=== PATIENT | female | born 1955 | race Caucasian/White ===

== ENCOUNTER → 2017-12-02 10:25 | Outpatient (CLI) | payer OTHER, SELFPAY ==
[2017-12-02 10:43] LABS: Add Manual Diff / Slide Review NO; Basophils Percent Auto 0.8 % (0-2); Eosinophils Percent Auto 0.6 % (2-4); Hematocrit 35.3 % (36-46); Hemoglobin 12.2 g/dL (12.0-16.0); Mean Corpuscular HGB Conc 34.6 % (30-36); Mean Corpuscular Hemoglobin 31.4 PG (26-34); Mean Corpuscular Volume 90.8 fL (80-100); Neutrophils Absolute Auto 2900 /uL (3000-5900); Neutrophils Percent Auto 44.6 % (50-75); Platelet Count 346 X10^3/uL (150-400); Red Blood Cell Count 3.89 X10^6/uL (4.0-5.2); Red Cell Distribution Width 13.9 % (11.6-14.8); White Blood Cell Count 6.6 X10^3/uL (4.5-11.0)
[2017-12-02 11:07] LABS: Alanine Aminotransferase 25 IU/L (9-52); Albumin 4.4 g/dL (3.5-5.0); Albumin Globulin Ratio 1.5 (1.0-2.8); Alkaline Phosphatase 72 U/L (38-126); Aspartate Aminotransferase 35 IU/L (14-36); BUN Creatinine Ratio 20.9 (6-22); Bilirubin Total 0.5 mg/dL (0.2-1.3); Blood Urea Nitrogen 23 mg/dL (7-17); Calcium 10.1 mg/dL (8.4-10.2); Carbon Dioxide 27 mmol/L (22-32); Chloride 101 mmol/L (98-107); Globulin 2.9 g/dL (1.7-4.1); Glucose 98 mg/dL (80-110); HEMOLYSIS < 15 (0-50); Lipase 69 U/L (23-300); Potassium 4.3 mmol/L (3.4-5.1); Sodium 138 mmol/L (137-145); Total Protein 7.3 g/dL (6.3-8.2)
== END ==
PROVIDERS: Visit Provider Nurse Practitioner Family
DX: Z00.00 Encounter for general adult medical examination without abnormal findings (principal)
CPT/HCPCS: 36415; 80053; 83690; 85025

== ENCOUNTER 2018-10-16 18:45 | Emergency (ER) | payer OTHER, SELFPAY ==
[2018-10-16 19:02] VITALS: BP 205/80; PULSE 92; RESP 16; TEMP 37.1; O2SAT 100; BMI 19.6
--- NOTE | 2018-10-16 19:33 | DI.RAD.S_ITS ---
PROCEDURE: XR CHEST 2V INDICATIONS: coughing up blood TECHNIQUE: 2 views of the chest were acquired. COMPARISON: None. FINDINGS: Surgical changes and devices: Surgical clips in the epigastric region. Lungs and pleura: Increased interstitial markings. Prominent lung volumes. No focal consolidation. No pleural effusions or pneumothorax. Mediastinum: Mediastinal contours are normal. Mild thickening in the right suprahilar region. Heart size is normal. Bones and chest wall: No suspicious bony abnormalities. Soft tissues appear unremarkable. IMPRESSION: No acute air space opacity. Emphysematous change. Dictated by: Sam Parikh M.D. on 10/16/2018 at 20:02 Approved by: Sam Parikh M.D. on 10/16/2018 at 20:04
--- NOTE | 2018-10-16 20:10 | DI.CT.S_ITS ---
PROCEDURE: CT ANGIO CHEST PE PROTOCOL INDICATIONS: hemoptysis TECHNIQUE: After the administration of intravenous contrast, 2 mm thick sections acquired from the pulmonary apices to the posterior costophrenic angles. 3-dimensional maximum intensity projection (MIP) coronal and sagittal reformats were then acquired through the thorax. For radiation dose reduction, the following was used: automated exposure control, adjustment of mA and/or kV according to patient size. COMPARISON: CXR earlier today. FINDINGS: Image quality: Excellent. Pulmonary arteries: No filling defect to suggest pulmonary embolism. The pulmonary arteries are prominent in size. The right main pulmonary artery measures approximately 2.9 cm, and the left measures 2.5 cm. Aneurysmal dilatation of the ascending aorta measuring 3.3 cm. Moderate air globular calcification. There is left ventricular hypertrophy. Mild mitral annular calcification. Coronary artery calcifications. Severe stenosis in the left subclavian artery due to noncalcified atherosclerotic plaque, (4/36). Medialized ICAs, variant. Scattered calcified atherosclerotic plaque in the mesenteric and renal arteries. Lungs and pleura: No acute airspace opacity. Mild progress as do the lung bases is most compatible of atelectasis. There is mild emphysematous change. Distal airway mucous plugging or secretions in the left lower lobe, (4/94). No active extravasation. No pleural effusions or pneumothorax. Mediastinum: Heart size is normal, without pericardial effusion. Calcified upper mediastinal lymph nodes. No enlarged mediastinal or hilar adenopathy. Esophagus is normal in caliber, without hiatal hernia. Bones and chest wall: No suspicious bony lesions. Ribs and thoracic spine appear intact throughout. Thyroid gland is unremarkable. No axillary or supraclavicular adenopathy. Abdomen: Asymmetric opacification of the left kidney superior pole. There is cortical thinning. No adrenal nodule. IMPRESSION: 1. No pulmonary embolism. Pulmonary arteries are prominent in size which could be due to pulmonary arterial hypertension. 2. Secretions or mucous plugging in the left lower lobe. 3. Calcified mediastinal lymph nodes consistent with prior granulomatous process. 4. Extensive calcified and noncalcified atherosclerotic plaque. Severe stenosis in the left subclavian artery. Dictated by: Sam Parikh M.D. on 10/16/2018 at 21:19 Approved by: Sam Parikh M.D. on 10/16/2018 at 21:33
--- NOTE | 2018-10-16 20:26 | ED.URI ---
HPI - URI/Sore Throat General Chief Complaint: Upper Respiratory Symptoms Stated Complaint: coughing up blood Time Seen by Provider: 10/16/18 19:48 Source: patient Mode of arrival: ambulatory Limitations: no limitations History of Present Illness HPI Narrative: Patient is a 63-year-old female who has a history of hemoptysis presents with hemoptysis. She says she has had at least 6 episodes of coughing up blood clots. She states the initial 1 was quite large however they have decreased in size and now only seem to be about a quarter. At the last 1 was at 6:00 p.m. says it was darker and looked a little bit older. However 2 years ago she had 1 episode where she was coughing up excessive amounts of blood and require transfer to [place]. She says they did not find a source. Overall she says this time was not as bad. She is a smoker are she denies any productive cough or shortness of breath recently. No fever or chills. No chest pain. She does take Plavix for history of [place] Related Data Previous Rx's Medication Instructions Recorded [medical marijuana] PRN PRN #0 09/28/16 atorvastatin 40 mg tablet 40 mg PO DAILY #90 tab 11/20/17 clopidogrel 75 mg tablet 75 mg PO DAILY #90 tab 11/20/17 levothyroxine 150 mcg tablet 150 mcg PO QDAY #90 tab 11/20/17 losartan 100 mg tablet 100 mg PO QDAY #90 tab 11/20/17 ibandronate 150 mg tablet 150 mg PO QMONTH #12 tab 12/20/17 Allergies Allergy/AdvReac Type Severity Reaction Status Date / Time No Known Drug Allergies Allergy Verified 12/20/17 10:46 Review of Systems Review of Systems ROS Unobtainable: All systems reviewed & are unremarkable except as noted in HPI and below Constitutional Denies chills, Denies fever(s), Denies lethargy and Denies weakness Eyes Denies change in vision, Denies eye discharge, Denies irritation and Denies loss of vision Cardiovascular Denies chest pain, Denies irregular heart rhythm, Denies lightheadedness, Denies palpitations and Denies orthopnea Respiratory Reports as per HPI and Reports hemoptysis Gastrointestinal Gastrointestinal: Denies abdominal pain, Denies change in bowel habits, Denies diarrhea, Denies nausea and Denies vomiting Genitourinary Denies hematuria, Denies flank pain, Denies urinary incontinence and Denies urinary urgency Musculoskeletal Denies back pain, Denies muscle weakness, Denies numbness and Denies tingling Integumentary/Breasts Denies pruritus, Denies erythema, Denies rash and Denies wounds Neurologic Denies loss of vision, Denies numbness, Denies tingling and Denies weakness Endocrine Denies palpitations [facility] Medical History COPD (chronic obstructive pulmonary disease) (Acute) Coronary artery disease (Acute) Hemoptysis (Acute) Social History Smoking Status: Current every day smoker alcohol intake: never Social History Smoking Status: Current every day smoker alcohol intake: never Exam Initial Vital Signs Initial Vital Signs: Vital Signs Temperature 98.8 F 10/16/18 19:02 Pulse Rate 92 H 10/16/18 19:02 Respiratory Rate 16 10/16/18 19:02 Blood Pressure 205/80 H 10/16/18 19:02 Pulse Oximetry 100 10/16/18 19:02 GENERAL: Well-appearing, well-nourished and in no acute distress. HEENT: Head atraumatic,EOMI, pupils reactive, face symmetric CARDIOVASCULAR: Regular rate and rhythm without murmurs, rubs or gallops. RESPIRATORY: Breath sounds equal bilaterally, no wheezes rales or rhonchi. ABDOMEN: Soft, nontender. Normoactive bowel sounds all 4 quadrants. No guarding or rebound. EXTREMITIES: Normal range of motion, no clubbing or edema. Neurovascularly intact NEUROLOGICAL: Alert and oriented x4.Normal gait and speech. Cranial nerves II through XII grossly intact. SKIN: Warm, dry, no laceration, no petechiae, no rashes or lesions. Course Orders Ordered: ED Orders 10/16/18 19:33 XR chest 2V Stat 10/16/18 20:10 CT angio chest PE protocol Stat 10/16/18 20:25 Complete Blood Count AUTO DIFF Stat Comprehensive Metabolic Panel Stat Partial Thromboplastin Time Stat Prothrombin Time INR Stat Consultations Consultation #1: Dr. Beard, pulmonology at [facility] has been updated on patient's symptoms and test results. At this time recommend continuing on Plavix and will call patient in the morning to schedule follow-up appointment. Time: 23:04 Vital Signs - 8 hr 10/16/18 19:02 10/16/18 21:18 10/16/18 22:35 Temperature 98.8 F Pulse Rate 92 H 77 82 Respiratory Rate 16 15 14 Blood Pressure 205/80 H Blood Pressure [Right Arm] 146/68 H 132/68 Pulse Oximetry 100 99 100 MDM - URI/Sore Throat Lab Data Attestation: I reviewed the patient's lab results. Result diagrams: 10/16/18 20:25 10/16/18 20:25 Lab Results 10/16/18 10/16/18 10/16/18 Range/Units 20:25 20:25 20:25 WBC 6.8 (4.5-11.0) X10^3/uL RBC 3.62 L (4.0-5.2) X10^6/uL Hgb 11.6 L (12.0-16.0) g/dL Hct 33.9 L (36-46) % MCV 93.6 (80-100) fL MCH 31.9 (26-34) PG MCHC 34.1 (30-36) % RDW 13.1 (11.6-14.8) % Plt Count 296 (150-400) X10^3/uL Neut % (Auto) 39.1 L (50-75) % Lymph % (Auto) 47.8 H (25-40) % [place] % (Auto) 10.5 (3-14) % Eos % (Auto) 2.1 (2-4) % Baso % (Auto) 0.5 (0-2) % Neut # (Auto) 2700 (7871-2208) /uL Lymph # (Auto) 3200 (8867-3232) /uL [place] # (Auto) 700 (0-900) /uL Eos # (Auto) 100 (0-450) /uL Baso # (Auto) 0 (0-100) /uL Plt Morphology Comment RBC Morphology Normal morphology PT 11.0 (10.1-12.7) SECONDS INR 1.0 (0.9-1.3) APTT 34 (26.4-36.2) SECONDS Sodium 134 L (137-145) mmol/L Potassium 4.3 (3.4-5.1) mmol/L Chloride 101 (98-107) mmol/L Carbon Dioxide 25 (22-32) mmol/L BUN 14 (7-17) mg/dL Creatinine 0.90 (0.52-1.04) mg/dL Estimated GFR > 60.0 (>60) mL/min BUN/Creatinine Ratio 15.6 (6-22) Glucose 80 (80-110) mg/dL Calcium 9.5 (8.4-10.2) mg/dL Total Bilirubin 0.4 (0.2-1.3) mg/dL AST 34 (14-36) IU/L ALT 22 (9-52) IU/L Alkaline Phosphatase 77 (38-126) U/L Total Protein 7.2 (6.3-8.2) g/dL Albumin 4.2 (3.5-5.0) g/dL Globulin 3.0 (1.7-4.1) g/dL Albumin/Globulin Ratio 1.4 (1.0-2.8) Imaging Data Chest x-ray: Radiologist's impression: PROCEDURE: XR CHEST 2V INDICATIONS: coughing up blood TECHNIQUE: 2 views of the chest were acquired. COMPARISON: None. FINDINGS: Surgical changes and devices: Surgical clips in the epigastric region. Lungs and pleura: Increased interstitial markings. Prominent lung volumes. No focal consolidation. No pleural effusions or pneumothorax. Mediastinum: Mediastinal contours are normal. Mild thickening in the right suprahilar region. Heart size is normal. Bones and chest wall: No suspicious bony abnormalities. Soft tissues appear unremarkable. IMPRESSION: No acute air space opacity. Emphysematous change. Dictated by: Sam Parikh M.D. on 10/16/2018 at 20:02 CT scan - chest: Radiologist's impression: PROCEDURE: CT ANGIO CHEST PE PROTOCOL INDICATIONS: hemoptysis TECHNIQUE: After the administration of intravenous contrast, 2 mm thick sections acquired from the pulmonary apices to the posterior costophrenic angles. 3-dimensional maximum intensity projection (MIP) coronal and sagittal reformats were then acquired through the thorax. For radiation dose reduction, the following was used: automated exposure control, adjustment of mA and/or kV according to patient size. COMPARISON: CXR earlier today. FINDINGS: Image quality: Excellent. Pulmonary arteries: No filling defect to suggest pulmonary embolism. The pulmonary arteries are prominent in size. The right main pulmonary artery measures approximately 2.9 cm, and the left measures 2.5 cm. Aneurysmal dilatation of the ascending aorta measuring 3.3 cm. Moderate air globular calcification. There is left ventricular hypertrophy. Mild mitral annular calcification. Coronary artery calcifications. Severe stenosis in the left subclavian artery due to noncalcified atherosclerotic plaque, (4/36). Medialized ICAs, variant. Scattered calcified atherosclerotic plaque in the mesenteric and renal arteries. Lungs and pleura: No acute airspace opacity. Mild progress as do the lung bases is most compatible of atelectasis. There is mild emphysematous change. Distal airway mucous plugging or secretions in the left lower lobe, (4/94). No active extravasation. No pleural effusions or pneumothorax. Mediastinum: Heart size is normal, without pericardial effusion. Calcified upper mediastinal lymph nodes. No enlarged mediastinal or hilar adenopathy. Esophagus is normal in caliber, without hiatal hernia. Bones and chest wall: No suspicious bony lesions. Ribs and thoracic spine appear intact throughout. Thyroid gland is unremarkable. No axillary or supraclavicular adenopathy. Abdomen: Asymmetric opacification of the left kidney superior pole. There is cortical thinning. No adrenal nodule. IMPRESSION: 1. No pulmonary embolism. Pulmonary arteries are prominent in size which could be due to pulmonary arterial hypertension. 2. Secretions or mucous plugging in the left lower lobe. 3. Calcified mediastinal lymph nodes consistent with prior granulomatous process. 4. Extensive calcified and noncalcified atherosclerotic plaque. Severe stenosis in the left subclavian artery. Dictated by: Sam Parikh M.D. on 10/16/2018 at 21:19 MDM Narrative Medical decision making narrative: Patient has not had any hemoptysis in the emergency department. She has had decreasing episodes of blood clots. However based on her history of what sounds like quite extensive hemoptysis in her being on Plavix I did touch base with pulmonology at this time agrees with outpatient follow-up. They have been given her information and have given patient the office number as well. She overall is hemodynamically stable. Discharge Plan Departure Patient Disposition: Home Clinical Impression: Hemoptysis Discharge Date/Time: 10/16/18 23:08 Interventions: ED Discharge Assessment Last Done: 10/16/18 23:08 Instructions: DI for Hemoptysis Activity Restrictions/Additional Instructions: *You have been diagnosed with hemoptysis *What to do: You will need further evaluation. [facility] should call you in the morning to help set up an outpatient evaluation. *Continue to take medications as directed Continue Plavix in all medications as previously prescribed *Follow up with your primary care provider in 2-[address] Beard, *Return to ER if you should have coughing up half a cup to a cup of blood more frequent episodes of hemoptysis, shortness of breath, chest pain or any new, worsening or concerning symptoms Prescriptions: No Action clopidogrel [Plavix] 75 mg tablet 75 mg PO DAILY Qty: 90 RF: 3 atorvastatin [Lipitor] 40 mg tablet 40 mg PO DAILY Qty: 90 RF: 3 levothyroxine 150 mcg tablet 150 mcg PO QDAY Qty: 90 RF: 3 losartan 100 mg tablet 100 mg PO QDAY Qty: 90 RF: 3 ibandronate [Boniva] 150 mg tablet 150 mg PO QMONTH Qty: 12 RF: 0 [medical marijuana] PRN PRNQty: 0 RF: 0
[2018-10-16 20:35] LABS: Basophils Absolute Auto 0 /uL (0-100); Basophils Percent Auto 0.5 % (0-2); Eosinophils Absolute Auto 100 /uL (0-450); Eosinophils Percent Auto 2.1 % (2-4); Hematocrit 33.9 % (36-46); Hemoglobin 11.6 g/dL (12.0-16.0); Lymphocytes Absolute Auto 3200 /uL (1100-4500); Lymphocytes Percent Auto 47.8 % (25-40); Mean Corpuscular HGB Conc 34.1 % (30-36); Mean Corpuscular Hemoglobin 31.9 PG (26-34); Mean Corpuscular Volume 93.6 fL (80-100); Monocytes Absolute Auto 700 /uL (0-900); Monocytes Percent Auto 10.5 % (3-14); Neutrophils Absolute Auto 2700 /uL (1500-7000); Neutrophils Percent Auto 39.1 % (50-75); Platelet Count 296 X10^3/uL (150-400); Red Blood Cell Count 3.62 X10^6/uL (4.0-5.2); Red Cell Distribution Width 13.1 % (11.6-14.8); White Blood Cell Count 6.8 X10^3/uL (4.5-11.0)
[2018-10-16 20:44] LABS: Alanine Aminotransferase 22 IU/L (9-52); Albumin 4.2 g/dL (3.5-5.0); Albumin Globulin Ratio 1.4 (1.0-2.8); Alkaline Phosphatase 77 U/L (38-126); Aspartate Aminotransferase 34 IU/L (14-36); BUN Creatinine Ratio 15.6 (6-22); Bilirubin Total 0.4 mg/dL (0.2-1.3); Blood Urea Nitrogen 14 mg/dL (7-17); Calcium 9.5 mg/dL (8.4-10.2); Carbon Dioxide 25 mmol/L (22-32); Chloride 101 mmol/L (98-107); Estimated Glomerular Filt Rate > 60.0 mL/min (>60); Glucose 80 mg/dL (80-110); HEMOLYSIS < 15 (0-50); Potassium 4.3 mmol/L (3.4-5.1); Sodium 134 mmol/L (137-145); Total Protein 7.2 g/dL (6.3-8.2)
[2018-10-16 20:50] LABS: Add Manual Diff / Slide Review SLIDE REVIEW
[2018-10-16 21:09] LABS: PTT Partial Thromboplastin Tim 34 SECONDS (26.4-36.2)
[2018-10-16 21:13] LABS: RBC Morphology Normal Morphology
--- NOTE | 2018-10-16 21:13 | PC.NURSE ---
Pt states coughing up blood clots started at 0100 and has had 6 episodes since. ON plavix and is a smoker. Denies CP or SOB.
[2018-10-16 21:18] VITALS: BP 146/68; PULSE 77; RESP 15; O2SAT 99
[2018-10-16 22:35] VITALS: BP 132/68; PULSE 82; RESP 14; O2SAT 100
== END 2018-10-16 23:08 | disposition home or self-care (01) ==
PROVIDERS: Emergency Provider Emergency Medicine
DX: R04.2 Hemoptysis (principal); Z79.02 Long term (current) use of antithrombotics/antiplatelets; I25.2 Old myocardial infarction
CPT/HCPCS: 36415; 36591; 71046; 71275; 80053; 85025; 85610; 85730; 99282; 99284; Q9967

== ENCOUNTER → 2018-11-17 10:39 | Outpatient (CLI) | payer OTHER, SELFPAY ==
--- NOTE | 2018-11-17 | DI.RAD.S_ITS ---
PROCEDURE: XR CERVICAL SPINE 2V OR 3V INDICATIONS: NECK PAIN TECHNIQUE: 3 view(s) of the cervical spine were acquired. COMPARISON: [facility], CT, CT ANGIO CHEST PE PROTOCOL, 10/16/2018, 20:49. FINDINGS: Bones: No fractures or dislocations to the T3 level. The lateral masses of C1 appear intact on the odontoid view. There is kyphosis of the cervical spine with subtle anterolisthesis of C2 on C3 likely related to patient positioning. Moderate multilevel cervical spondylitic changes most pronounced at C5-6 and C6-7. No acute compression fractures. Diffuse osteopenia. No suspicious bony lesions. Soft tissues: No prevertebral soft tissue swelling. Stable appearance of soft tissue calcifications in the left lower neck compatible with previously seen calcified lymph nodes in the superior mediastinum. IMPRESSION: Cervical spine without acute fracture or dislocation. Moderate multilevel cervical spondylosis most pronounced at C5-6 and C6-7 with gentle kyphosis of the cervical spine. Diffuse osteopenia. Stable soft tissue calcifications of the lower neck compatible with previously noted calcified lymph nodes in the superior mediastinum. Dictated by: Michael Felxi M.D. on 11/17/2018 at 12:31 Approved by: Michael Felix M.D. on 11/17/2018 at 12:37
== END ==
PROVIDERS: Visit Provider Student in an Organized Health Care Education/Training Program
DX: M54.2 Cervicalgia (principal); M47.812 Spondylosis without myelopathy or radiculopathy, cervical region; M40.202 Unspecified kyphosis, cervical region; M85.88 Other specified disorders of bone density and structure, other site; I89.8 Other specified noninfective disorders of lymphatic vessels and lymph nodes
CPT/HCPCS: 72040

== ENCOUNTER → 2019-04-10 13:03 | Outpatient (CLI) | payer OTHER, SELFPAY | PROVIDERS: PCP Student in an Organized Health Care Education/Training Program; Referring Provider Student in an Organized Health Care Education/Training Program; Visit Provider Student in an Organized Health Care Education/Training Program | DX: M81.0 Age-related osteoporosis without current pathological fracture (principal); Z78.0 Asymptomatic menopausal state; C81.90 Hodgkin lymphoma, unspecified, unspecified site; E07.9 Disorder of thyroid, unspecified; Z90.722 Acquired absence of ovaries, bilateral; Z87.891 Personal history of nicotine dependence | CPT/HCPCS: 77080 ==

== ENCOUNTER → 2019-06-11 09:42 | Outpatient (CLI) | payer OTHER, SELFPAY ==
--- NOTE | 2019-06-11 10:50 | DI.CT.S_ITS ---
PROCEDURE: CT ABDOMEN PELVIS W CON INDICATIONS: Abdominal pain/Diarrhea TECHNIQUE: After the administration of oral and intravenous contrast, 5 mm thick sections acquired from the diaphragms to the symphysis. 5 mm thick coronal and sagittal reformats were performed. For radiation dose reduction, the following was used: automated exposure control, adjustment of mA and/or kV according to patient size. COMPARISON: [facility], CT, CT ANGIO CHEST PE PROTOCOL, 10/16/2018, 20:49. FINDINGS: Image quality: Excellent. ABDOMEN: Lung bases: Lung bases are clear. Heart size is normal. Solid organs: Liver is normal in size. There is a new heterogeneously enhancing low-density mass within the medial segment left hepatic lobe posteriorly measuring roughly 70 mm. There are innumerable smaller low-density masses scattered throughout the right and left hepatic lobes. Gallbladder is contracted and appears thickened. Biliary system is non-dilated. Pancreas enhances normally. Spleen is normal in size and enhancement. No adrenal nodules. Kidneys are normal in size and enhancement, without hydronephrosis. Peritoneum and bowel: Stomach, small bowel, and colon loops are normal in caliber and wall thickness. No pneumoperitoneum. Small amount of free fluid within the pelvis. Normal appendix. Nodes and vessels: There is new, necrotic, 30 mm short axis portacaval adenopathy. There is new 14 mm short axis gastrohepatic ligament adenopathy. Aorta and inferior vena cava are normal in caliber. Miscellaneous: No ventral hernias. PELVIS: Genitourinary: Bladder wall thickness is normal. Miscellaneous: No inguinal hernias or adenopathy. Bones: 16 mm lucent focus within the anterosuperior L3 vertebral body. Mild chronic appearing wedging of L1 and L2. No vertebral body compression fractures. IMPRESSION: 1. New multifocal hepatic malignancy, with differential considerations including primary hepatoma versus metastatic disease. Ultrasound-guided biopsy could be performed for further assessment, if clinically indicated. 2. New metastases to the portal caval and gastrohepatic ligament nodes. 3. L3 bony metastasis. Dictated by: Eduardo Aburto M.D. on 06/11/2019 at 11:08 Approved by: Eduardo Aburto M.D. on 06/11/2019 at 11:15
--- NOTE | 2019-06-15 15:44 | ONC.MSW ---
Description: New Pt Referral T/C Reason for Referral: Liver cancer, metastatic. Activity: Called pt to confirm that we've received her referral, discuss immediate needs/concerns, and assist with care coordination needs. Pt was newly diagnosed by CT only, Dr. Vargas is recommending CT guided biopsy for tissue path, this is not currently scheduled. Pt shared that she had Hodkin's Lymphoma around 2003, received tx at that time. Both pt and her spouse expressed anger and frustration that her CT scan said spleen enhances normally, however she doesn't have a spleen. ASSISTANT MANAGER BILINGUAL called DI and requested that the CT scan be amended. Called pt back, her was not satisfied with ASSISTANT MANAGER BILINGUAL sharing that the CT will be amended, and insisted that maybe this wasn't even her CT, maybe the whole thing need's to be re-read. ASSISTANT MANAGER BILINGUAL encouraged him to call the DI supervisor [place], [place], in order to receive the reassure that he was needing that the CT was in fact pt's. Pt is scheduled for her Oncology initial consult visit next , 06/24. No further needs indicated at this time.
== END ==
PROVIDERS: PCP Student in an Organized Health Care Education/Training Program; Referring Provider Student in an Organized Health Care Education/Training Program; Visit Provider Student in an Organized Health Care Education/Training Program
DX: R10.9 Unspecified abdominal pain (principal); C22.9 Malignant neoplasm of liver, not specified as primary or secondary; C79.51 Secondary malignant neoplasm of bone; C77.2 Secondary and unspecified malignant neoplasm of intra-abdominal lymph nodes
CPT/HCPCS: 74177; Q9967